=== PATIENT | female | born 1940 | race Caucasian/White ===

== ENCOUNTER 2024-01-30 11:56 | Emergency (ER) | payer OTHER ==
[~2024-01-30] VITALS: Ht 160 cm; Wt 64.0 kg
[2024-01-30 12:22] VITALS: O2SAT 99
[2024-01-30 14:43] VITALS: BP 168/41; PULSE 82; RESP 16; TEMP 36.66960; O2SAT 97
== END 2024-01-30 14:45 | disposition home or self-care (01) ==
LOC: ER 11:56
DX: S93.402A Sprain of unspecified ligament of left ankle, initial encounter (principal); I10 Essential (primary) hypertension; W18.30XA Fall on same level, unspecified, initial encounter; Y93.89 Activity, other specified; Y92.89 Other specified places as the place of occurrence of the external cause; Y99.8 Other external cause status
CPT/HCPCS: 73610; 99283